=== PATIENT | male | born 1940 | race Caucasian/White ===

== ENCOUNTER 2022-11-18 16:38 | Emergency (ER) | payer MEDICARE, BC ==
[~2022-11-18 16:38] MED LIST: Magnevist 469MG/ML 20 ML VIAL ONE
== END 2022-11-18 19:28 | disposition home or self-care (01) ==
LOC: ERS 16:38
DX: H54.7 Unspecified visual loss (principal); E11.9 Type 2 diabetes mellitus without complications; I10 Essential (primary) hypertension; E78.5 Hyperlipidemia, unspecified; Z79.01 Long term (current) use of anticoagulants
CPT/HCPCS: 70543; 70553; A9579